=== PATIENT | male | born 1940 | race Caucasian/White ===

== ENCOUNTER 2017-04-19 13:17 | Inpatient (IN) | payer MEDICARE, MEDICAID ==
[~2017-04-19] VITALS: Ht 180.3 cm; Wt 56.2 kg
[~2017-04-19 13:17] MED LIST: CEPH-368 PO; HYDR-3138 PO
[2017-04-19] MEDS ORDERED: SODIUM CHLORIDE 0.9% 1,000 ML IV ONE (13:35)
[2017-04-19] MEDS ORDERED: ASPIRIN 81 MG TABLET CHEW ONE (13:42)
[2017-04-19] MEDS ORDERED: SODIUM CHLORIDE FLUSH 10ML SYR IVF ONE (14:00)
[2017-04-19] MEDS ORDERED: ASPIRIN 81 MG TABLET CHEW PO ONE (14:00)
[2017-04-19 14:25] LABS: BLOOD UREA NITROGEN 21 mg/dL (7-18)
[2017-04-19 14:31] LABS: ASPARTATE AMINO TRANSFERASE 21 U/L (15-37)
[2017-04-19 14:32] LABS: IS PT STATUS REG ER OR PRE ER? YES
[2017-04-19] MEDS ORDERED: ONDANSETRON 2MG/ML, 2ML IVPush PRN (16:30)
[2017-04-19] MEDS ORDERED: DOCUSATE 100 MG CAPSULE PO PRN (16:30)
[2017-04-19] MEDS ORDERED: MORPHINE SULFATE 4 MG/ML, 1ML IVPush PRN (16:30)
[2017-04-19] MEDS ORDERED: ONDANSETRON ODT 4 MG PO PRN (16:30)
[2017-04-19] MEDS ORDERED: POLYETHYLENE GLYCOL 17 GM PACKET PO PRN (16:30)
[2017-04-19] MEDS ORDERED: LABETALOL 5MG/ML, 20ML IVPush PRN (16:30)
[2017-04-19] MEDS ORDERED: BISACODYL 10 MG SUPP PR PRN (16:30)
[2017-04-19] MEDS ORDERED: POTASSIUM CHLORIDE 10 MEQ in SODIUM CHLORIDE 0.9% 1,000 ML IV SCH (17:00)
[2017-04-19] MEDS ORDERED: DOXYCYCLINE 100MG TABLET PO ONE (17:00)
[2017-04-19] MEDS ORDERED: POTASSIUM CHLORIDE 20 MEQ TAB.ER.PRT PO ONE (17:00)
[2017-04-19 18:56] VITALS: BP 144/90
[2017-04-19 19:36] VITALS: BP 137/84
[2017-04-19 20:49] LABS: IS PT STATUS REG ER OR PRE ER? NO
[2017-04-19] MEDS: DOXYCYCLINE 100 MG in DEXTROSE 5% 250 ML IV SCH (21:25)
[2017-04-19] MEDS: NICOTINE 14MG/24 HR PATCH.TD24 TD SCH (21:25)
[2017-04-19] MEDS: HEPARIN 5,000 UNITS/ML, 1ML SQ SCH (21:26)
[2017-04-20 02:20] VITALS: BP 129/83
[2017-04-20 02:54] LABS: BLOOD UREA NITROGEN 22 mg/dL (7-18)
[2017-04-20 02:58] LABS: IS PT STATUS REG ER OR PRE ER? NO
[2017-04-20 03:04] LABS: ASPARTATE AMINO TRANSFERASE 19 U/L (15-37)
[2017-04-20] MEDS: HYDROcodone/APAP 5/325 TABLET PO PRN ×2 (05:31→12:08)
[2017-04-20] MEDS: ASPIRIN 81 MG TABLET EC PO SCH (05:31)
[2017-04-20] MEDS: HEPARIN 5,000 UNITS/ML, 1ML SQ SCH ×3 (05:33→20:40)
[2017-04-20] MEDS: DOXYCYCLINE 100 MG in DEXTROSE 5% 250 ML IV SCH ×2 (09:46→20:40)
[2017-04-20 10:53] VITALS: BP 137/83
[2017-04-20 15:46] VITALS: BP 142/84
[2017-04-20] MEDS: NICOTINE 14MG/24 HR PATCH.TD24 TD SCH (16:26)
[2017-04-20 20:54] VITALS: BP 154/92
[2017-04-20 21:20] LABS: PATH.CAST-FLAG NOT PRESENT; SPERM-FLAG NOT PRESENT; SRC-FLAG NOT PRESENT; XTAL-FLAG NOT PRESENT; YLC-FLAG NOT PRESENT
[2017-04-21] VITALS (7 sets, daily range): BP systolic 132–185; BP diastolic 70–110
[2017-04-21] MEDS: ASPIRIN 81 MG TABLET EC PO SCH (05:40)
[2017-04-21] MEDS: HEPARIN 5,000 UNITS/ML, 1ML SQ SCH ×3 (05:40→23:28)
[2017-04-21] MEDS: DOXYCYCLINE 100 MG in DEXTROSE 5% 250 ML IV SCH ×2 (09:08→22:02)
[2017-04-21] MEDS: methylPREDNISolone SOD SUCC 125 MG/2 ML IVPush SCH ×2 (11:17→19:50)
[2017-04-21] MEDS: NICOTINE 14MG/24 HR PATCH.TD24 TD SCH (17:12)
[2017-04-22 02:52] VITALS: BP 150/81
[2017-04-22] MEDS: methylPREDNISolone SOD SUCC 125 MG/2 ML IVPush SCH ×3 (02:54→18:36)
[2017-04-22 05:54] VITALS: BP 162/97
[2017-04-22] MEDS: ASPIRIN 81 MG TABLET EC PO SCH (05:55)
[2017-04-22 07:53] VITALS: BP 167/91
[2017-04-22] MEDS: HEPARIN 5,000 UNITS/ML, 1ML SQ SCH ×3 (08:27→23:54)
[2017-04-22] MEDS: CARVEDILOL 3.125 MG TABLET PO SCH ×2 (08:27→17:11)
[2017-04-22] MEDS: DOXYCYCLINE 100 MG in DEXTROSE 5% 250 ML IV SCH ×2 (08:27→23:24)
[2017-04-22 15:27] VITALS: BP 147/91
[2017-04-22] MEDS: NICOTINE 14MG/24 HR PATCH.TD24 TD SCH (17:11)
[2017-04-22 19:10] VITALS: BP 147/81
[2017-04-22 23:54] VITALS: BP 153/83
[2017-04-23 00:48] VITALS: BP 153/88
[2017-04-23] MEDS ORDERED: TEMAZEPAM 15 MG CAPSULE PO ONE (01:00)
[2017-04-23 01:47] VITALS: BP 143/69
[2017-04-23] MEDS: methylPREDNISolone SOD SUCC 125 MG/2 ML IVPush SCH ×3 (02:30→18:42)
[2017-04-23 06:08] VITALS: BP 131/72
[2017-04-23] MEDS: CARVEDILOL 3.125 MG TABLET PO SCH ×2 (06:08→17:53)
[2017-04-23] MEDS: ASPIRIN 81 MG TABLET EC PO SCH (06:08)
[2017-04-23 08:13] VITALS: BP 152/84
[2017-04-23] MEDS: DOXYCYCLINE 100 MG in DEXTROSE 5% 250 ML IV SCH ×2 (08:50→22:15)
[2017-04-23] MEDS: HEPARIN 5,000 UNITS/ML, 1ML SQ SCH ×3 (08:50→23:42)
[2017-04-23 13:56] VITALS: BP 142/76
[2017-04-23] MEDS: NICOTINE 14MG/24 HR PATCH.TD24 TD SCH (17:53)
[2017-04-23 20:18] VITALS: BP 132/72
[2017-04-24 01:42] VITALS: BP 159/83
[2017-04-24 02:21] VITALS: BP 152/77
[2017-04-24] MEDS: TRAZODONE 50MG TABLET PO SCH ×2 (02:35→21:45)
[2017-04-24] MEDS: methylPREDNISolone SOD SUCC 125 MG/2 ML IVPush SCH ×2 (02:35→11:58)
[2017-04-24] MEDS ORDERED: ALBUTEROL/IPRATROPIUM 2.5MG/0.5MG, 3 ML ONE (03:27)
[2017-04-24] MEDS: HYDROcodone/APAP 5/325 TABLET PO PRN ×2 (03:47→23:26)
[2017-04-24 05:26] VITALS: BP 155/74
[2017-04-24] MEDS: CARVEDILOL 3.125 MG TABLET PO SCH ×2 (05:27→18:38)
[2017-04-24] MEDS: ASPIRIN 81 MG TABLET EC PO SCH (05:27)
[2017-04-24] MEDS ORDERED: ALBUTEROL/IPRATROPIUM 2.5MG/0.5MG, 3 ML NPPB ONE (06:30)
[2017-04-24 07:37] VITALS: BP 140/74
[2017-04-24] MEDS: DOXYCYCLINE 100 MG in DEXTROSE 5% 250 ML IV SCH ×2 (08:34→20:10)
[2017-04-24] MEDS: HEPARIN 5,000 UNITS/ML, 1ML SQ SCH ×3 (08:35→23:26)
[2017-04-24] MEDS: FLUTICASONE/VILANTEROL 200-25MCG/INH INH SCH (10:08)
[2017-04-24 14:37] VITALS: BP 163/82
[2017-04-24] MEDS: NICOTINE 14MG/24 HR PATCH.TD24 TD SCH (16:12)
[2017-04-24 19:26] VITALS: BP 164/82
[2017-04-24] MEDS: methylPREDNISolone SOD SUCC 40 MG/ML IVPush SCH (23:00)
[2017-04-25 01:32] VITALS: BP 164/85
[2017-04-25] MEDS: ASPIRIN 81 MG TABLET EC PO SCH (06:08)
[2017-04-25] MEDS: CARVEDILOL 3.125 MG TABLET PO SCH (06:08)
[2017-04-25 07:37] VITALS: BP 156/83
[2017-04-25] MEDS: DOXYCYCLINE 100 MG in DEXTROSE 5% 250 ML IV SCH (08:54)
[2017-04-25] MEDS: HEPARIN 5,000 UNITS/ML, 1ML SQ SCH ×2 (08:54→13:55)
[2017-04-25] MEDS: FLUTICASONE/VILANTEROL 200-25MCG/INH INH SCH (08:55)
[2017-04-25] MEDS: methylPREDNISolone SOD SUCC 40 MG/ML IVPush SCH (13:53)
[2017-04-25 13:54] VITALS: BP 153/79
[2017-04-25] MEDS: NICOTINE 14MG/24 HR PATCH.TD24 TD SCH (13:55)
[2017-04-25] MEDS ORDERED: METH4TAB2 PO (16:21)
[2017-04-25] MEDS ORDERED: DOXY100T PO (16:29)
[2017-04-25] MEDS ORDERED: FLUT1AER PO (16:31)
[2017-04-25] MEDS ORDERED: ALBU90AE PO (16:37)
[2017-04-25] MEDS ORDERED: CARVEDILOL 6.25 MG TABLET PO SCH (18:00)
== END 2017-04-25 18:32 | disposition home or self-care (01) | DRG 189 ==
LOC: ED 15:54 → EDIP 15:55 → ED 16:14 → 5SO 18:49
PROVIDERS: ADMIT Internal Medicine
DX: J96.21 Acute and chronic respiratory failure with hypoxia (principal); J18.9 Pneumonia, unspecified organism; J44.0 Chronic obstructive pulmonary disease with (acute) lower respiratory infection; J44.1 Chronic obstructive pulmonary disease with (acute) exacerbation; E87.1 Hypo-osmolality and hyponatremia; R64 Cachexia; J20.9 Acute bronchitis, unspecified; E87.6 Hypokalemia; D63.8 Anemia in other chronic diseases classified elsewhere; Z53.21 Procedure and treatment not carried out due to patient leaving prior to being seen by health care provider; F17.210 Nicotine dependence, cigarettes, uncomplicated; I12.9 Hypertensive chronic kidney disease with stage 1 through stage 4 chronic kidney disease, or unspecified chronic kidney disease; N18.3 Chronic kidney disease, stage 3 (moderate); I73.9 Peripheral vascular disease, unspecified; S81.802A Unspecified open wound, left lower leg, initial encounter; Z59.0 Homelessness; Z71.6 Tobacco abuse counseling; T38.0X5A Adverse effect of glucocorticoids and synthetic analogues, initial encounter; X58.XXXA Exposure to other specified factors, initial encounter; Y92.89 Other specified places as the place of occurrence of the external cause; Y93.89 Activity, other specified; Y99.8 Other external cause status
CPT/HCPCS: 36415; 71010; 78582; 80053; 80061; 81001; 83690; 83735; 83880; 84439; 84443; 84484; 85025; 85379; 85610; 85730; 87040; 93005; 93308; 93321; 93325; 93922; 93926; 94640; 96360; 96361; J1644; J3480; J7060; J7620; A9540; A9558; C9898; J2920; J2930; J7030

== ENCOUNTER 2017-05-06 16:15 | Inpatient (IN) | payer MEDICARE, MEDICAID ==
[~2017-05-06] VITALS: Ht 180.3 cm; Wt 59.0 kg
[~2017-05-06 16:15] MED LIST changes: +ALBU90AE PO; +DOXY100T PO; +FLUT1AER PO; +METH4TAB2 PO
[2017-05-06] MEDS ORDERED: methylPREDNISolone SOD SUCC 125 MG/2 ML ONE (17:20)
[2017-05-06] MEDS ORDERED: ALBUTEROL/IPRATROPIUM 2.5MG/0.5MG, 3 ML ONE (17:23)
[2017-05-06] MEDS ORDERED: methylPREDNISolone SOD SUCC 125 MG/2 ML IVP ONE (17:30)
[2017-05-06] MEDS ORDERED: SODIUM CHLORIDE FLUSH 10ML SYR IVF ONE (17:30)
[2017-05-06] MEDS ORDERED: ALBUTEROL/IPRATROPIUM 2.5MG/0.5MG, 3 ML NPPB ONE (17:30)
[2017-05-06 17:36] LABS: ABG COLLECTION SITE LEFT RADIAL; COLLATERAL CIRCULATION TESTING NORMAL
[2017-05-06 17:49] LABS: ASPARTATE AMINO TRANSFERASE 20 U/L (15-37); BLOOD UREA NITROGEN 20 mg/dL (7-18)
[2017-05-06 17:54] LABS: IS PT STATUS REG ER OR PRE ER? YES
[2017-05-06] MEDS ORDERED: DOCUSATE 100 MG CAPSULE PO PRN (21:00)
[2017-05-06] MEDS ORDERED: POLYETHYLENE GLYCOL 17 GM PACKET PO PRN (21:00)
[2017-05-06] MEDS ORDERED: hydrALAzine 20 MG/ML, 1ML IVPush PRN (21:00)
[2017-05-06] MEDS ORDERED: BISACODYL 10 MG SUPP PR PRN (21:00)
[2017-05-06] MEDS ORDERED: POTASSIUM CHLORIDE 20 MEQ TAB.ER.PRT PO ONE (21:00)
[2017-05-06 21:27] VITALS: BP 147/89
[2017-05-06] MEDS ORDERED: ALBUTEROL/IPRATROPIUM 2.5MG/0.5MG, 3 ML NPPB PRN (22:00)
[2017-05-06] MEDS: DOXYCYCLINE 100MG TABLET PO SCH (22:39)
[2017-05-06] MEDS: ENOXAPARIN 40 MG/0.4 ML SQ SCH (22:39)
[2017-05-06] MEDS: NICOTINE 14MG/24 HR PATCH.TD24 TD SCH (22:39)
[2017-05-06] MEDS: methylPREDNISolone SOD SUCC 125 MG/2 ML IVPush SCH (22:43)
[2017-05-07 03:49] VITALS: BP 143/83
[2017-05-07 06:11] LABS: ASPARTATE AMINO TRANSFERASE 14 U/L (15-37); BLOOD UREA NITROGEN 24 mg/dL (7-18)
[2017-05-07] MEDS: methylPREDNISolone SOD SUCC 125 MG/2 ML IVPush SCH ×4 (06:28→22:58)
[2017-05-07 07:15] VITALS: BP 149/80
[2017-05-07] MEDS: DOXYCYCLINE 100MG TABLET PO SCH ×2 (09:03→21:09)
[2017-05-07] MEDS: ACETAMINOPHEN 325 MG TABLET PO PRN (09:05)
[2017-05-07] MEDS: GUAIFENESIN/DM 200-20MG, 10ML UDC PO PRN ×2 (09:06→19:41)
[2017-05-07 12:55] VITALS: BP 152/83
[2017-05-07] MEDS ORDERED: ONDANSETRON 2MG/ML, 2ML ONE (17:29)
[2017-05-07] MEDS ORDERED: HYDROcodone/APAP 5/325 TABLET ONE (17:30)
[2017-05-07] MEDS: ONDANSETRON 2MG/ML, 2ML IVPush PRN (17:33)
[2017-05-07] MEDS: HYDROcodone/APAP 5/325 TABLET PO PRN (17:34)
[2017-05-07 18:40] VITALS: BP 149/87
[2017-05-07] MEDS: ENOXAPARIN 40 MG/0.4 ML SQ SCH (21:09)
[2017-05-07] MEDS: NICOTINE 14MG/24 HR PATCH.TD24 TD SCH (21:09)
[2017-05-07] MEDS: TRAZODONE 50MG TABLET PO PRN (23:06)
[2017-05-08 03:29] VITALS: BP 149/79
[2017-05-08] MEDS: methylPREDNISolone SOD SUCC 125 MG/2 ML IVPush SCH (05:05)
[2017-05-08 05:47] LABS: BLOOD UREA NITROGEN 38 mg/dL (7-18)
[2017-05-08 07:02] VITALS: BP 148/86
[2017-05-08] MEDS ORDERED: MAALOX/HYOSCYAMINE/LIDOCAINE 45 ML BOTTLE PO ONE (10:30)
[2017-05-08] MEDS: FAMOTIDINE 20 MG TABLET PO SCH ×2 (11:50→19:56)
[2017-05-08] MEDS: DOXYCYCLINE 100MG TABLET PO SCH ×2 (11:51→19:56)
[2017-05-08 12:20] VITALS: BP 143/82
[2017-05-08] MEDS: CEFTRIAXONE PMX 1GM/50ML 50 ML IV SCH (18:28)
[2017-05-08] MEDS: ONDANSETRON 2MG/ML, 2ML IVPush PRN (19:05)
[2017-05-08] MEDS ORDERED: OMNIPAQUE 350 MG/ML, 150 ML BOTTLE ONE (19:51)
[2017-05-08] MEDS: METRONIDAZOLE PMX 500MG/100ML 100 ML IV SCH (19:56)
[2017-05-08] MEDS: ENOXAPARIN 40 MG/0.4 ML SQ SCH (19:56)
[2017-05-08] MEDS: NICOTINE 14MG/24 HR PATCH.TD24 TD SCH (19:56)
[2017-05-08 20:05] VITALS: BP 166/88
[2017-05-08] MEDS: TRAZODONE 50MG TABLET PO PRN (22:25)
[2017-05-08] MEDS ORDERED: D5%-0.45% NACL 1,000 ML IV SCH (22:30)
[2017-05-09 02:11] VITALS: BP 141/87
[2017-05-09] MEDS: METRONIDAZOLE PMX 500MG/100ML 100 ML IV SCH ×3 (03:35→22:16)
[2017-05-09 05:47] LABS: BLOOD UREA NITROGEN 34 mg/dL (7-18)
[2017-05-09 06:43] VITALS: BP 149/85
[2017-05-09] MEDS: DOXYCYCLINE 100MG TABLET PO SCH ×2 (09:00→21:00)
[2017-05-09] MEDS ORDERED: HEPARIN 25,000 UNITS/500ML PMX 500 ML IV PRN (09:00)
[2017-05-09] MEDS ORDERED: HEPARIN 5,000 UNITS/ML, 1ML IV PRN (09:00)
[2017-05-09] MEDS ORDERED: HEPARIN 5,000 UNITS/ML, 1ML IV ONE (09:00)
[2017-05-09] MEDS: ASPIRIN 81 MG TABLET EC PO SCH (10:00)
[2017-05-09 12:34] LABS: DAU SCREEN DISCLAIMER
[2017-05-09 12:39] VITALS: BP 152/96
[2017-05-09] MEDS ORDERED: TPN PER PHARMACY MC SCH (13:00)
[2017-05-09] MEDS ORDERED: D5%-0.45% NACL 1,000 ML IV SCH (14:50)
[2017-05-09] MEDS: FILTER, DISP 1.2 MICRON FOR TPN/PVN IV PRN (16:37)
[2017-05-09] MEDS ORDERED: DEXTROSE 70% IV SCH (17:00)
[2017-05-09] MEDS ORDERED: [UNRECOGNIZED DRUG - OTHER] IV SCH (17:00)
[2017-05-09] MEDS ORDERED: DEXTROSE 50%, 50ML SYRINGE IVPush PRN (17:00)
[2017-05-09] MEDS ORDERED: FAT EMULSIONS IV SCH (17:00)
[2017-05-09] MEDS ORDERED: AMINO ACID 10% IV SCH (17:00)
[2017-05-09] MEDS ORDERED: DEXTROSE 10% 500 ML IV PRN (17:00)
[2017-05-09 18:38] VITALS: BP 150/96
[2017-05-09] MEDS: CEFTRIAXONE PMX 1GM/50ML 50 ML IV SCH (19:57)
[2017-05-09] MEDS: ATORVASTATIN 20 MG TABLET PO SCH (21:00)
[2017-05-09] MEDS: INSULIN REGULAR LOW DOSE Q6H X 48HRS SQ-INSULIN SCH (22:15)
[2017-05-09] MEDS: NICOTINE 14MG/24 HR PATCH.TD24 TD SCH (22:17)
[2017-05-09] MEDS ORDERED: DIPHENHYDRAMINE 50 MG/ML, 1ML IVPush ONE (22:30)
[2017-05-10 01:39] VITALS: BP 92/58
[2017-05-10] MEDS: INSULIN REGULAR LOW DOSE Q6H X 48HRS SQ-INSULIN SCH ×4 (02:37→21:15)
[2017-05-10] MEDS: ASPIRIN 81 MG TABLET EC PO SCH (05:15)
[2017-05-10] MEDS: METRONIDAZOLE PMX 500MG/100ML 100 ML IV SCH ×3 (05:35→21:03)
[2017-05-10 07:02] LABS: BLOOD UREA NITROGEN 28 mg/dL (7-18)
[2017-05-10 07:03] LABS: ASPARTATE AMINO TRANSFERASE 42 U/L (15-37)
[2017-05-10 08:17] VITALS: BP 100/66
[2017-05-10 12:38] VITALS: BP 153/100
[2017-05-10] MEDS ORDERED: [UNRECOGNIZED DRUG - OTHER] IV SCH (17:00)
[2017-05-10] MEDS ORDERED: FAT EMULSIONS IV SCH (17:00)
[2017-05-10] MEDS ORDERED: AMINO ACID 10% IV SCH (17:00)
[2017-05-10] MEDS ORDERED: DEXTROSE 70% IV SCH (17:00)
[2017-05-10] MEDS: FILTER, DISP 1.2 MICRON FOR TPN/PVN IV PRN (17:51)
[2017-05-10] MEDS: CEFTRIAXONE PMX 1GM/50ML 50 ML IV SCH (17:51)
[2017-05-10 19:27] VITALS: BP 125/85
[2017-05-10] MEDS: NICOTINE 14MG/24 HR PATCH.TD24 TD SCH (21:08)
[2017-05-10] MEDS: ATORVASTATIN 20 MG TABLET PO SCH (21:08)
[2017-05-10] MEDS: TRAZODONE 50MG TABLET PO PRN (21:08)
[2017-05-11 02:03] VITALS: BP 130/73
[2017-05-11] MEDS: INSULIN REGULAR LOW DOSE Q6H X 48HRS SQ-INSULIN SCH (03:00)
[2017-05-11] MEDS: METRONIDAZOLE PMX 500MG/100ML 100 ML IV SCH ×3 (06:01→22:34)
[2017-05-11] MEDS: ASPIRIN 81 MG TABLET EC PO SCH (06:02)
[2017-05-11 06:37] LABS: BLOOD UREA NITROGEN 26 mg/dL (7-18)
[2017-05-11 07:30] VITALS: BP 145/102
[2017-05-11 15:30] VITALS: BP 126/88
[2017-05-11] MEDS ORDERED: FAT EMULSIONS IV SCH (17:00)
[2017-05-11] MEDS ORDERED: AMINO ACID 10% IV SCH (17:00)
[2017-05-11] MEDS ORDERED: DEXTROSE 70% IV SCH (17:00)
[2017-05-11] MEDS ORDERED: FILTER, DISP 1.2 MICRON FOR TPN/PVN IV PRN (17:00)
[2017-05-11] MEDS ORDERED: [UNRECOGNIZED DRUG - OTHER] IV SCH (17:00)
[2017-05-11] MEDS: CEFTRIAXONE PMX 1GM/50ML 50 ML IV SCH (17:42)
[2017-05-11 22:06] VITALS: BP 152/91
[2017-05-11] MEDS: NICOTINE 14MG/24 HR PATCH.TD24 TD SCH (22:35)
[2017-05-11] MEDS: TRAZODONE 50MG TABLET PO PRN (22:35)
[2017-05-11] MEDS: ACETAMINOPHEN 325 MG TABLET PO PRN (22:35)
[2017-05-11] MEDS: ATORVASTATIN 20 MG TABLET PO SCH (22:35)
[2017-05-12 03:50] VITALS: BP 130/83
[2017-05-12 05:27] LABS: ASPARTATE AMINO TRANSFERASE 35 U/L (15-37); BLOOD UREA NITROGEN 25 mg/dL (7-18)
[2017-05-12] MEDS: METRONIDAZOLE PMX 500MG/100ML 100 ML IV SCH ×2 (06:04→13:26)
[2017-05-12] MEDS: ASPIRIN 81 MG TABLET EC PO SCH (06:05)
[2017-05-12] MEDS ORDERED: INSULIN REGULAR LOW DOSE QDAY SQ-INSULIN SCH (07:00)
[2017-05-12 09:06] VITALS: BP 126/79
[2017-05-12] MEDS: INSULIN REGULAR LOW DOSE QDAY SQ-INSULIN SCH (09:15)
[2017-05-12] MEDS: HYDROcodone/APAP 5/325 TABLET PO PRN (12:23)
[2017-05-12 15:34] VITALS: BP 107/76
[2017-05-12] MEDS ORDERED: DEXTROSE 70% IV SCH (17:00)
[2017-05-12] MEDS ORDERED: FAT EMULSIONS IV SCH (17:00)
[2017-05-12] MEDS ORDERED: [UNRECOGNIZED DRUG - OTHER] IV SCH (17:00)
[2017-05-12] MEDS ORDERED: AMINO ACID 10% IV SCH (17:00)
[2017-05-12] MEDS ORDERED: FILTER, DISP 1.2 MICRON FOR TPN/PVN IV PRN (17:00)
[2017-05-12] MEDS: CEFTRIAXONE PMX 1GM/50ML 50 ML IV SCH (18:00)
[2017-05-12 20:42] VITALS: BP 133/88
[2017-05-12] MEDS: TRAZODONE 50MG TABLET PO PRN (20:45)
[2017-05-12] MEDS: ATORVASTATIN 20 MG TABLET PO SCH (20:45)
[2017-05-12] MEDS: NICOTINE 14MG/24 HR PATCH.TD24 TD SCH (20:49)
[2017-05-12 21:06] VITALS: BP 146/88
[2017-05-13] MEDS: HYDROcodone/APAP 5/325 TABLET PO PRN (01:57)
[2017-05-13] MEDS: ASPIRIN 81 MG TABLET EC PO SCH (05:22)
[2017-05-13 08:18] LABS: BLOOD UREA NITROGEN 26 mg/dL (7-18)
[2017-05-13 08:48] LABS: ANISOCYTOSIS 1+
[2017-05-13 08:50] LABS: OVALOCYTES 1+; POLYCHROMASIA 1+
[2017-05-13] MEDS: INSULIN REGULAR LOW DOSE QDAY SQ-INSULIN SCH (09:01)
[2017-05-13 09:03] VITALS: BP 131/81
[2017-05-13] MEDS ORDERED: [UNRECOGNIZED DRUG - REMARK] XX PRN (12:00)
[2017-05-13 12:43] LABS: HIV 1&2 ANTIBODY SCREEN Nonreactive (Nonreactive); HIV-1 p24 ANTIGEN Nonreactive (Nonreactive)
[2017-05-13 16:01] VITALS: BP 136/100
[2017-05-13] MEDS ORDERED: DEXTROSE 70% IV SCH (17:00)
[2017-05-13] MEDS ORDERED: [UNRECOGNIZED DRUG - OTHER] IV SCH (17:00)
[2017-05-13] MEDS ORDERED: AMINO ACID 10% IV SCH (17:00)
[2017-05-13] MEDS ORDERED: FAT EMULSIONS IV SCH (17:00)
[2017-05-13 19:41] VITALS: BP 136/82
[2017-05-13] MEDS: ATORVASTATIN 20 MG TABLET PO SCH (20:01)
[2017-05-13] MEDS: NICOTINE 14MG/24 HR PATCH.TD24 TD SCH (20:01)
[2017-05-13] MEDS: TRAZODONE 50MG TABLET PO PRN (20:06)
[2017-05-14 04:19] VITALS: BP 146/92
[2017-05-14 04:53] LABS: BLOOD UREA NITROGEN 25 mg/dL (7-18)
[2017-05-14] MEDS: ASPIRIN 81 MG TABLET EC PO SCH (06:30)
[2017-05-14 10:01] VITALS: BP 142/88
[2017-05-14 14:55] VITALS: BP 107/65
[2017-05-14] MEDS: TRAZODONE 50MG TABLET PO PRN (20:44)
[2017-05-14] MEDS: ATORVASTATIN 20 MG TABLET PO SCH (20:44)
[2017-05-14] MEDS: NICOTINE 14MG/24 HR PATCH.TD24 TD SCH (20:46)
[2017-05-14] MEDS: HYDROcodone/APAP 5/325 TABLET PO PRN (20:54)
[2017-05-14 21:08] VITALS: BP 125/90
[2017-05-15 02:13] VITALS: BP 131/82
[2017-05-15] MEDS: ASPIRIN 81 MG TABLET EC PO SCH (06:04)
[2017-05-15 06:40] LABS: BLOOD UREA NITROGEN 40 mg/dL (7-18)
[2017-05-15 09:38] VITALS: BP 145/86
[2017-05-15 14:22] VITALS: BP 120/71
[2017-05-15] MEDS: NEUTRA PHOS K 250 MG TABLET PO SCH ×2 (16:03→20:39)
[2017-05-15 20:00] VITALS: BP 136/87
[2017-05-15] MEDS: TRAZODONE 50MG TABLET PO PRN (20:39)
[2017-05-15] MEDS: NICOTINE 14MG/24 HR PATCH.TD24 TD SCH (20:39)
[2017-05-15] MEDS: ATORVASTATIN 20 MG TABLET PO SCH (20:39)
[2017-05-16 05:11] VITALS: BP 133/78
[2017-05-16] MEDS: ASPIRIN 81 MG TABLET EC PO SCH (05:17)
[2017-05-16 07:27] VITALS: BP 136/84
[2017-05-16] MEDS: NEUTRA PHOS K 250 MG TABLET PO SCH (11:03)
[2017-05-16 13:40] VITALS: BP 133/83
[2017-05-16 18:26] VITALS: BP 134/81
[2017-05-16] MEDS: NICOTINE 14MG/24 HR PATCH.TD24 TD SCH (19:40)
[2017-05-16] MEDS: ATORVASTATIN 20 MG TABLET PO SCH (19:40)
[2017-05-17] MEDS: HYDROcodone/APAP 5/325 TABLET PO PRN (01:45)
[2017-05-17 08:03] VITALS: BP 123/82
[2017-05-17] MEDS: ASPIRIN 81 MG TABLET EC PO SCH (08:29)
[2017-05-17 14:19] VITALS: BP 139/83
[2017-05-17 20:00] VITALS: BP 152/99
[2017-05-17] MEDS: ATORVASTATIN 20 MG TABLET PO SCH (22:23)
[2017-05-17] MEDS: NICOTINE 14MG/24 HR PATCH.TD24 TD SCH (22:25)
[2017-05-18 01:45] VITALS: BP 161/90
[2017-05-18] MEDS: ASPIRIN 81 MG TABLET EC PO SCH (06:15)
[2017-05-18 08:49] VITALS: BP 132/81
[2017-05-18] MEDS ORDERED: NICO1PAT4 TD (10:49)
[2017-05-18] MEDS ORDERED: DOCU-30 PO (10:49)
[2017-05-18] MEDS ORDERED: ATOR20TA9 PO (10:49)
[2017-05-18] MEDS ORDERED: HYDR-3240 PO (10:49)
[2017-05-18] MEDS ORDERED: ASPI-621 PO (10:49)
== END 2017-05-18 13:08 | disposition home or self-care (01) | DRG 393 ==
LOC: ED 17:31 → EDIP 20:50 → 4NOR 21:20
PROVIDERS: ADMIT Internal Medicine; ATTEND Internal Medicine
PROC: 02HV33Z Insertion of Infusion Device into Superior Vena Cava, Percutaneous Approach (ICD-10-PCS; principal; 2017-05-09)
PROC: B548ZZA Ultrasonography of Superior Vena Cava, Guidance (ICD-10-PCS; 2017-05-09)
PROC: 3E0436Z Introduction of Nutritional Substance into Central Vein, Percutaneous Approach (ICD-10-PCS; 2017-05-09)
DX: K55.1 Chronic vascular disorders of intestine (principal); J96.01 Acute respiratory failure with hypoxia; E43 Unspecified severe protein-calorie malnutrition; E87.3 Alkalosis; J44.1 Chronic obstructive pulmonary disease with (acute) exacerbation; Z68.1 Body mass index [BMI] 19.9 or less, adult; I74.5 Embolism and thrombosis of iliac artery; F17.213 Nicotine dependence, cigarettes, with withdrawal; D71 Functional disorders of polymorphonuclear neutrophils; D72.828 Other elevated white blood cell count; E87.6 Hypokalemia; I70.8 Atherosclerosis of other arteries; I73.9 Peripheral vascular disease, unspecified; Z79.82 Long term (current) use of aspirin; Z79.899 Other long term (current) drug therapy; Z91.19 Patient's noncompliance with other medical treatment and regimen
CPT/HCPCS: 36415; 36569; 36600; 71010; 71250; 74000; 74177; 74245; 76700; 76937; 77001; 80048; 80053; 80061; 80307; 81003; 82040; 82803; 82962; 83605; 83690; 83735; 83880; 84100; 84134; 84145; 84439; 84443; 84484; 85025; 85610; 85730; 86703; 87040; 87899; 93005; 94640; 96374; J0610; J0696; J1650; J2405; J3475; J7620; Q9967; C1751; G0435; J1200; J2930; J3420; J7512; S0028

== ENCOUNTER 2017-05-20 10:52 | Inpatient (IN) | payer MEDICARE, MEDICAID ==
[~2017-05-20] VITALS: Ht 180.3 cm; Wt 55.7 kg
[~2017-05-20 10:52] MED LIST changes: +ASPI-621 PO; +ATOR20TA9 PO; +DOCU-30 PO; +HYDR-3240 PO; +NICO1PAT4 TD
[2017-05-20] MEDS ORDERED: methylPREDNISolone SOD SUCC 125 MG/2 ML ONE (11:18)
[2017-05-20] MEDS ORDERED: SODIUM CHLORIDE FLUSH 10ML SYR IVF ONE (11:30)
[2017-05-20] MEDS ORDERED: methylPREDNISolone SOD SUCC 125 MG/2 ML IVP ONE (11:30)
[2017-05-20 11:53] LABS: ABG COLLECTION SITE RIGHT RADIAL; COLLATERAL CIRCULATION TESTING NORMAL
[2017-05-20 12:02] LABS: ASPARTATE AMINO TRANSFERASE 43 U/L (15-37); BLOOD UREA NITROGEN 24 mg/dL (7-18)
[2017-05-20 12:06] LABS: IS PT STATUS REG ER OR PRE ER? YES
[2017-05-20] MEDS ORDERED: ALBUTEROL/IPRATROPIUM 2.5MG/0.5MG, 3 ML NPPB PRN ×2 (12:30→19:00)
[2017-05-20] MEDS ORDERED: ALBUTEROL/IPRATROPIUM 2.5MG/0.5MG, 3 ML ONE (12:41)
[2017-05-20] MEDS ORDERED: SODIUM CHLORIDE FLUSH 10ML SYR IVF PRN (13:00)
[2017-05-20 14:22] VITALS: BP 110/72
[2017-05-20] MEDS ORDERED: ACETAMINOPHEN 325 MG TABLET PO PRN (15:30)
[2017-05-20] MEDS ORDERED: DOCUSATE 100 MG CAPSULE PO PRN ×2 (15:30→21:00)
[2017-05-20] MEDS ORDERED: GUAIFENESIN/DM 200-20MG, 10ML UDC PO PRN (15:30)
[2017-05-20] MEDS ORDERED: ONDANSETRON 2MG/ML, 2ML IVPush PRN (15:30)
[2017-05-20] MEDS ORDERED: NICOTINE 14MG/24 HR PATCH.TD24 TD SCH (15:30)
[2017-05-20] MEDS ORDERED: morphine SULFATE 10 MG/ML, 1ML IVPush PRN (15:30)
[2017-05-20] MEDS ORDERED: HYDROcodone/APAP 5/325 TABLET PO PRN ×2 (15:30)
[2017-05-20] MEDS: ALBUTEROL/IPRATROPIUM 2.5MG/0.5MG, 3 ML NPPB SCH ×2 (16:00→19:01)
[2017-05-20] MEDS: predniSONE 50MG TABLET PO SCH (16:29)
[2017-05-20] MEDS: NICOTINE 14MG/24 HR PATCH.TD24 TD SCH (16:29)
[2017-05-20] MEDS: ENOXAPARIN 40 MG/0.4 ML SQ SCH (16:29)
[2017-05-20] MEDS ORDERED: ALBUTEROL SULFATE 2.5 MG/3 ML NPPB SCH (19:00)
[2017-05-20 19:45] LABS: DAU SCREEN DISCLAIMER
[2017-05-20] MEDS: ATORVASTATIN 20 MG TABLET PO SCH (20:46)
[2017-05-20 21:23] VITALS: BP 117/75
[2017-05-21 02:00] VITALS: BP 122/76
[2017-05-21] MEDS: ASPIRIN 81 MG TABLET EC PO SCH (05:41)
[2017-05-21 06:00] LABS: BLOOD UREA NITROGEN 28 mg/dL (7-18)
[2017-05-21] MEDS: ALBUTEROL/IPRATROPIUM 2.5MG/0.5MG, 3 ML NPPB SCH ×6 (07:44→20:21)
[2017-05-21] MEDS: PANTOPRAZOLE 20MG TABLET PO SCH (07:59)
[2017-05-21] MEDS: predniSONE 50MG TABLET PO SCH (07:59)
[2017-05-21 08:41] VITALS: BP 100/59
[2017-05-21] MEDS: FLUTICASONE/VILANTEROL 100-25MCG/INH INH SCH (09:00)
[2017-05-21 14:34] VITALS: BP 138/78
[2017-05-21] MEDS: NICOTINE 14MG/24 HR PATCH.TD24 TD SCH (16:43)
[2017-05-21] MEDS: ENOXAPARIN 40 MG/0.4 ML SQ SCH (16:43)
[2017-05-21 19:14] VITALS: BP 129/75
[2017-05-21] MEDS: ATORVASTATIN 20 MG TABLET PO SCH (20:29)
[2017-05-22 01:00] VITALS: BP 144/78
[2017-05-22] MEDS: ASPIRIN 81 MG TABLET EC PO SCH (05:28)
[2017-05-22] MEDS: ALBUTEROL/IPRATROPIUM 2.5MG/0.5MG, 3 ML NPPB SCH ×2 (06:52→18:33)
[2017-05-22] MEDS: FLUTICASONE/VILANTEROL 100-25MCG/INH INH SCH (07:47)
[2017-05-22] MEDS: PANTOPRAZOLE 20MG TABLET PO SCH (07:47)
[2017-05-22] MEDS: predniSONE 50MG TABLET PO SCH (07:47)
[2017-05-22 08:00] VITALS: BP 136/76
[2017-05-22 13:27] VITALS: BP 145/75
[2017-05-22] MEDS: NICOTINE 14MG/24 HR PATCH.TD24 TD SCH (17:32)
[2017-05-22] MEDS: ENOXAPARIN 40 MG/0.4 ML SQ SCH (17:32)
[2017-05-22 19:18] VITALS: BP 123/64
[2017-05-22] MEDS: ATORVASTATIN 20 MG TABLET PO SCH (20:57)
[2017-05-23 01:25] VITALS: BP 133/92
[2017-05-23] MEDS: ASPIRIN 81 MG TABLET EC PO SCH (05:16)
[2017-05-23] MEDS: ALBUTEROL/IPRATROPIUM 2.5MG/0.5MG, 3 ML NPPB SCH ×2 (05:38→09:10)
[2017-05-23 07:16] VITALS: BP 167/86
[2017-05-23] MEDS: PANTOPRAZOLE 20MG TABLET PO SCH (08:24)
[2017-05-23] MEDS: predniSONE 50MG TABLET PO SCH (08:24)
[2017-05-23] MEDS: FLUTICASONE/VILANTEROL 100-25MCG/INH INH SCH (08:24)
[2017-05-23] MEDS ORDERED: PRED5TAB PO (13:18)
[2017-05-23 13:30] VITALS: BP 133/71
== END 2017-05-23 14:50 | disposition home or self-care (01) | DRG 189 ==
LOC: ED 12:30 → EDIP 12:31 → ED 12:37 → 3NE 14:10 → DCLOUNGE 05-23 14:25
PROVIDERS: ADMIT Internal Medicine; ATTEND Family Medicine
DX: J96.00 Acute respiratory failure, unspecified whether with hypoxia or hypercapnia (principal); E43 Unspecified severe protein-calorie malnutrition; K55.1 Chronic vascular disorders of intestine; J44.1 Chronic obstructive pulmonary disease with (acute) exacerbation; Z68.1 Body mass index [BMI] 19.9 or less, adult; F17.210 Nicotine dependence, cigarettes, uncomplicated; G89.29 Other chronic pain; R07.89 Other chest pain; N18.3 Chronic kidney disease, stage 3 (moderate); Z91.14 Patient's other noncompliance with medication regimen; Z71.6 Tobacco abuse counseling
CPT/HCPCS: 36415; 36600; 71010; 80048; 80053; 80307; 82803; 83605; 83735; 83880; 84100; 84145; 84484; 85025; 87040; 93005; 94640; 96374; J1650; J7620; J2930; J7512

== ENCOUNTER 2017-05-24 13:46 | Emergency (ER) | payer MEDICARE, MEDICAID ==
[~2017-05-24] VITALS: Ht 180.3 cm; Wt 54.0 kg
[~2017-05-24 13:46] MED LIST changes: +PRED5TAB PO
[2017-05-24] MEDS ORDERED: SODIUM CHLORIDE 0.9% 1,000 ML IV ONE (14:00)
[2017-05-24] MEDS ORDERED: SODIUM CHLORIDE FLUSH 10ML SYR IVF ONE (14:00)
[2017-05-24] MEDS ORDERED: SODIUM CHLORIDE 0.9% 1,000ML IVBOLUS ONE (14:00)
[2017-05-24] MEDS ORDERED: ALBUTEROL/IPRATROPIUM 2.5MG/0.5MG, 3 ML NPPB SCH (14:00)
[2017-05-24] MEDS ORDERED: ALBUTEROL/IPRATROPIUM 2.5MG/0.5MG, 3 ML ONE (14:19)
[2017-05-24 14:22] LABS: ABG COLLECTION SITE RIGHT RADIAL; COLLATERAL CIRCULATION TESTING NORMAL
[2017-05-24 14:32] LABS: ASPARTATE AMINO TRANSFERASE 30 U/L (15-37); BLOOD UREA NITROGEN 37 mg/dL (7-18)
[2017-05-24 14:37] LABS: IS PT STATUS REG ER OR PRE ER? YES
[2017-05-24 14:52] LABS: ANISOCYTOSIS 2+; HYPOCHROMIA 1+; MICROCYTOSIS 1+
[2017-05-24 16:10] VITALS: BP 139/86
== END 2017-05-24 16:22 | disposition home or self-care (01) ==
LOC: ED 16:10
DX: J44.1 Chronic obstructive pulmonary disease with (acute) exacerbation (principal); Z72.9 Problem related to lifestyle, unspecified; F17.200 Nicotine dependence, unspecified, uncomplicated
CPT/HCPCS: 36600; 71010; 80053; 82803; 83880; 84484; 85025; 93005; 94640; 96360; 99285; J7030; J7512; J7620

== ENCOUNTER 2017-05-26 04:24 | Emergency (ER) | payer MEDICARE, MEDICAID ==
[~2017-05-26] VITALS: Ht 180.3 cm; Wt 54.7 kg
[2017-05-26] MEDS ORDERED: SODIUM CHLORIDE FLUSH 10ML SYR IVF ONE (05:00)
[2017-05-26] MEDS ORDERED: ALBUTEROL/IPRATROPIUM 2.5MG/0.5MG, 3 ML NPPB ONE (05:00)
[2017-05-26 06:10] LABS: BLOOD UREA NITROGEN 22 mg/dL (7-18)
[2017-05-26 06:13] LABS: IS PT STATUS REG ER OR PRE ER? YES
[2017-05-26 07:10] VITALS: BP 155/99
== END 2017-05-26 07:37 | disposition home or self-care (01) ==
LOC: ED 04:32
DX: J44.1 Chronic obstructive pulmonary disease with (acute) exacerbation (principal); F17.210 Nicotine dependence, cigarettes, uncomplicated; Z91.14 Patient's other noncompliance with medication regimen
CPT/HCPCS: 36415; 71010; 80048; 82040; 83880; 84484; 85025; 93005; 94640; 99285; J7512; J7620

== ENCOUNTER 2017-07-17 01:06 | Emergency (ER) | payer MEDICARE, MEDICAID ==
[~2017-07-17] VITALS: Ht 180.3 cm; Wt 79.5 kg
[2017-07-17] MEDS ORDERED: methylPREDNISolone SOD SUCC 125 MG/2 ML ONE (01:29)
[2017-07-17] MEDS ORDERED: ONDANSETRON 2MG/ML, 2ML ONE (01:29)
[2017-07-17] MEDS ORDERED: ONDANSETRON 2MG/ML, 2ML IVPush ONE (01:30)
[2017-07-17] MEDS ORDERED: ALBUTEROL/IPRATROPIUM 2.5MG/0.5MG, 3 ML NPPB ONE (01:30)
[2017-07-17] MEDS ORDERED: methylPREDNISolone SOD SUCC 125 MG/2 ML IVPush SCH (01:30)
[2017-07-17] MEDS ORDERED: SODIUM CHLORIDE FLUSH 10ML SYR IVF ONE (01:30)
[2017-07-17] MEDS ORDERED: SODIUM CHLORIDE 0.9% 1,000ML IVBOLUS ONE (01:30)
[2017-07-17 01:35] LABS: HEMATOCRIT 39.4 % (39.2-51.8); HEMOGLOBIN 12.5 g/dL (13.7-18.0); WHITE BLOOD COUNT 5.7 x10^3/uL (3.4-10)
[2017-07-17 01:49] LABS: ASPARTATE AMINO TRANSFERASE 90 U/L (15-37); BLOOD UREA NITROGEN 23 mg/dL (7-18)
[2017-07-17 01:55] LABS: IS PT STATUS REG ER OR PRE ER? YES
[2017-07-17 02:59] VITALS: BP 147/81
== END 2017-07-17 03:33 | disposition home or self-care (01) ==
LOC: ED 01:32
DX: J44.1 Chronic obstructive pulmonary disease with (acute) exacerbation (principal); F17.200 Nicotine dependence, unspecified, uncomplicated
CPT/HCPCS: 36415; 71010; 80053; 83605; 83690; 84484; 85025; 85610; 85730; 93005; 94640; 96361; 96374; 96375; 99285; J2405; J2930; J7030; J7620